=== PATIENT | male | born 1980 | race Caucasian/White ===

== ENCOUNTER 2018-11-12 14:06 | Emergency (ER) | payer BC ==
[2018-11-12 14:19] VITALS: BP 119/89; PULSE 68; TEMP 98.8; BMI 27.8
[2018-11-12] MEDS ORDERED: LIDOCAINE 5% TOPICAL PATCH TP ONE (14:41)
--- NOTE | 2018-11-12 14:41 | PDOC ---
"Documentation entered by Rosaline Gasca SCRIBE, acting as scribe for Ashok Mccormick MD. Ashok Mccormick MD: This documentation has been prepared by the [employer] fra[employer] Coll[employer], SCRIBE, under my direction and personally reviewed by me in its entirety. I confirm that the documentation accurately reflects all work, treatment, procedures, and medical decision making performed by me. History of Present Illness - General Chief Complaint: Pain, Acute Stated Complaint: BACK PAIN Time Seen by Provider: 11/12/18 14:07 History Source: Patient Exam Limitations: No Limitations - History of Present Illness Initial Comments: 11/12/18 14:40 The patient is a 38 year old male with a significant past medical history of rheumatoid arthritis and hypothyroidism who presents to the emergency department with worsening lower back pain for 1 week. The patient states that on onset of his lower back pain severity was about a 4/10 by which he went to his [facility] 3 days ago and was advised to take cyclobenzaprine. The patient states that since then his back pain has gradually worsened, constant and spasm-like. He states that his lower back pain is worsened with movement and listing. The patient reports trying other forms of pain relief patches and creams with no apparent relief. He states that he took 1 aleve today and came to the ED for further evaluation of his pain. 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 He endorses a prior back injury years ago from work but denies this feeling like that. He denies any numbness, weakness or tingling sensations. He denies any fever, chills, nausea, vomiting, diarrhea, constipation or urinary symptoms. The patient denies any other complaints. Past History - Past Medical History Allergies/Adverse Reactions: Allergies Allergy/AdvReac Type Severity Reaction Status Date / Time No Known Allergies Allergy Verified 11/12/18 14:11 Home Medications: Ambulatory Orders Cyclobenzaprine HCl [Flexeril -] 10 mg PO TID 11/12/18 Folic Acid 1 mg PO DAILY 11/12/18 Levothyroxine [Synthroid -] 125 mcg PO DAILY 11/12/18 Lidocaine 5% Patch [Lidoderm Patch -] 1 patch TP DAILY PRN #7 patch 11/12/18 Methocarbamol [Robaxin -] 500 mg PO BID PRN #14 tablet 11/12/18 Methotrexate Sodium [Methotrexate] 25 mg .ROUTE WEEKLY 11/12/18 Naproxen 500 mg PO BID PRN #20 tablet 11/12/18 Oxycodone HCl/Acetaminophen [Percocet 5-325 mg Tablet] 1 tab PO Q6H PRN #5 tablet MDD 4 11/12/18 Review of Systems - Review of Systems Able to Perform ROS?: Yes Comments:: 11/12/18 14:40 ADULT ROS GENERAL/CONSTITUTIONAL: No fever or chills. No weakness. HEAD, EYES, EARS, NOSE AND THROAT: No change in vision. No ear pain or discharge. No sore throat. CARDIOVASCULAR: No chest pain or shortness of breath. RESPIRATORY: No cough, wheezing, or hemoptysis. GASTROINTESTINAL: No nausea, vomiting, diarrhea or constipation. GENITOURINARY: No dysuria, frequency, or change in urination. MUSCULOSKELETAL:(+)back pain. No joint or muscle swelling or pain. No neck pain. SKIN: No rash NEUROLOGIC: No headache, vertigo, loss of consciousness, or change in strength/ sensation. ENDOCRINE: No increased thirst. No abnormal weight change. HEMATOLOGIC/LYMPHATIC: No anemia, easy bleeding, or history of blood clots. ALLERGIC/IMMUNOLOGIC: No hives or skin allergy. *Physical Exam - Physical Exam Comments: 11/12/18 15:28 GENERAL: Awake, alert, and fully oriented, in no acute distress HEAD: No signs of trauma NECK: Normal ROM, supple, no lymphadenopathy, JVD, or masses. No CVA tenderness ABDOMEN: Soft, nontender, normoactive bowel sounds. No guarding, no rebound. No masses EXTREMITIES: Normal range of motion, no edema. No clubbing or cyanosis. No cords, erythema, or tenderness BACK: (+)bilateral paralumbar muscle tender to palpation, reproducible with extension and flexion. No numbness or weakness. No spine tenderness. No stepoffs NEUROLOGICAL: Cranial nerves II through XII grossly intact. Normal speech, normal gait SKIN: Warm, Dry, normal turgor, no rashes or lesions noted. Medical Decision Making - Medical Decision Making 11/12/18 14:11 A portion of this note was documented by scribe services under my direction. I have reviewed the details of the note, within reason, and agree with the documentation with the following case summary and management plan written by me. Patient treated in the ED. Nursing notes are reviewed and incorporated into the medical decision-making. Vital signs reviewed. Peripheral IV access obtained by the nurse, laboratory studies are drawn and sent, reviewed and interpreted by myself. Vital Signs Temp Pulse Resp BP Pulse Ox 98.8 F 68 18 119/89 100 11/12/18 14:07 11/12/18 14:07 11/12/18 14:07 11/12/18 14:07 11/12/18 14:07 38-year-old male with history of idiopathic arthritis on weekly methotrexate presents with lower back pain. 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 He is unaware of any injuries or events but reported last week of gradually worsening lower back muscle spasm worst with movement. States that rest improves the symptoms. Denies any urinary or bowel incontinence. Denies any numbness or weakness. Patient initially took naproxen and Lidoderm patch and low dose Flexeril with some relief but the symptoms have gradually worsened to patient's came to the ER. Patient also reports that his is also getting surgery tomorrow and that the patient like to have manageable pain prior to caring for his . At this time, patient's symptoms do not seem to indicates red flags such as neurological competitions. However, patient does have history of arthritis. We' ll obtain a CAT scan of the lumbar spine to evaluate for arthritis. We'll trial Percocets and reassess. This report was requested by: Ashok Mccormick | Reference #: [id number] There are no results for the search terms that you entered. 11/12/18 16:08 CT scan demonstrates L4-L5 mild to moderate central and left paracentral disc bulge probably slightly impinging left L4 nerve root. L5-S1 minimal central disc bulge without nerve root. The patient reports feeling better with the Percocet. He reports that he will be picked up from the hospital. I suspect patient likely has accommodation of back spasm and disc herniation. I will give a prescription for naproxen, robaxin , and rescue percocet. Patient will also be given a prescription for Lidoderm patches. I advised patient that he would benefit from physical therapy and will refer him to an orthopedist. Patient verbalizes understanding agrees with the plan. We will treat as muscle skeletal at this time. Return precautions given. I discussed the physical exam findings, ancillary test results and final diagnoses with the patient. I answered all of the patient's questions. The patient was satisfied with the care received and felt comfortable with the discharge plan and treatment plan. The patient will call their primary care physician within 24 hours to arrange follow-up and will return to the Emergency Department with any new, persistant or worsening symptoms. *DC/Admit/Observation/Transfer Diagnosis at time of Disposition: Back pain Qualifiers: Back pain location: low back pain Chronicity: acute Back pain laterality: unspecified Sciatica presence: without sciatica Qualified Code(s): M54.5 - Low back pain - Discharge Dispostion Disposition: HOME Condition at time of disposition: Stable Decision to Admit order: No - Prescriptions Prescriptions: Lidocaine 5% Patch [Lidoderm Patch -] 1 patch TP DAILY PRN #7 patch PRN Reason: Back Pain Methocarbamol [Robaxin -] 500 mg PO BID PRN #14 tablet PRN Reason: Back Spasm Naproxen 500 mg PO BID PRN #20 tablet PRN Reason: Back Pain Oxycodone HCl/Acetaminophen [Percocet 5-325 mg Tablet] 1 tab PO Q6H PRN #5 tablet MDD 4 PRN Reason: Pain - Referrals Referrals: Dre Beebe MD [Staff Physician] - - Patient Instructions Printed Discharge Instructions: Back Pain (Alternative Therapy), DI for Low Back Pain Additional Instructions: You have a disc herniation and lower back spasm. Please take 500 mg naproxen every 12 hours as needed for pain. For muscle relaxant, you can use robaxin 500 mg every 12 hours as needed. For severe pain control, take one tablet of percocet 6 to 8 hours as needed. These medications may make you drowsy so please do not drink alcohol or drive on this medication. It is very important that you follow up with a spine doctor. You may need physical therapy and further evaluation. Please call to schedule an appointment. - Post Discharge Activity Forms/Work/School Notes: Back to Work"
[2018-11-12] MEDS ORDERED: LIDOCAINE 5% TOPICAL PATCH ONE (14:43)
[2018-11-12] MEDS ORDERED: LIDOCAINE PATCH REMOVAL MC SCH (22:00)
== END 2018-11-12 16:27 | disposition home or self-care (01) ==
LOC: FER 14:06
DX: M54.5 Low back pain (principal); E03.9 Hypothyroidism, unspecified; M06.9 Rheumatoid arthritis, unspecified
CPT/HCPCS: 72131-TC; 99282-25